=== PATIENT | male | born 1980 | race Caucasian/White ===

== ENCOUNTER → 2016-10-09 | Outpatient (CLI) | payer BC ==
[2016-10-09 14:21] LABS: CHOLESTEROL/HDL RATIO 5.1
== END | disposition home or self-care (01) ==
LOC: C.LABMFLN 09:10
PROVIDERS: ATTEND Family Medicine
DX: N52.9 Male erectile dysfunction, unspecified (principal); Z13.220 Encounter for screening for lipoid disorders